=== PATIENT | male | born 1975 | race Caucasian/White ===

== ENCOUNTER 2022-03-29 16:40 | Outpatient (REF) | payer OTHER, SELFPAY ==
--- NOTE | 2022-03-29 15:45 | SKI_PTH ---
PATIENT: Kevan Joy LOC: [facility] U#:[id number] AGE/SX: 47/M ROOM: RE03/29/[address]: Nelson Handley DO : 1975 BED: DIS: 03/29/2022 SPEC #: [id number] RECD: 04/01/22 11:23 STATUS: SUJATA REQ #: [id number] RONEY: 03/29/22 15:[address]: Nelson Handley DEPT: Surgical Specimen RECD BY: Nhi Hdez ENTERED: 04/01/22 11:23 SP TYPE: CARLOZ SCRUGGS DR: Miroslava Bynum Tissues: 1 - SKIN BIOPSY(SHAVE/PUNCH) 2 - SKIN BIOPSY(SHAVE/PUNCH) 3 - SKIN BIOPSY(SHAVE/PUNCH) 4 - SKIN BIOPSY(SHAVE/PUNCH) Procedures: IMMUNOPEROXIDASE STAIN SKIN LEVEL 4 Comments: [id number]
== END 2022-03-29 16:41 | disposition home or self-care (01) ==
LOC: LBN 16:40
PROVIDERS: PCP Family Medicine; Visit Provider Otolaryngology Otolaryngology/Facial Plastic Surgery
DX: D22.22 Melanocytic nevi of left ear and external auricular canal (principal); D22.5 Melanocytic nevi of trunk; D22.39 Melanocytic nevi of other parts of face; L57.0 Actinic keratosis
CPT/HCPCS: 88305; 88361